=== PATIENT | female | born 1990 | race Two or more races ===

== ENCOUNTER 2021-02-22 09:32 | Inpatient (IN) | payer OTHER ==
[~2021-02-22] VITALS: Ht 157.5 cm; Wt 65.3 kg
[2021-02-22] MEDS ORDERED: PRENATAL TABLE1 EAC1 PO (09:51)
[2021-02-22] MEDS ORDERED: HEMATRON PO (09:52)
[2021-02-24] MEDS ORDERED: AMOX1TAB5 PO (08:11)
[2021-02-24] MEDS ORDERED: DOCUSATE SODIU100 MG PO (08:11)
[2021-02-24] MEDS ORDERED: PREPLUS CA-FE1 EACH PO (08:11)
[2021-02-24] MEDS ORDERED: IBUPROFEN400 MG PO (08:11)
== END 2021-02-24 11:32 | disposition home or self-care (01) | DRG 768 ==
LOC: SURG-SUITE 09:32 → LDR 09:32 → SURG-SUITE 18:04
PROVIDERS: ADMIT Obstetrics & Gynecology; ATTEND Obstetrics & Gynecology
PROC: 10E0XZZ Delivery of Products of Conception, External Approach (ICD-10-PCS; principal; 2021-02-22)
PROC: 0DQP0ZZ Repair Rectum, Open Approach (ICD-10-PCS; 2021-02-22)
PROC: 0W8NXZZ Division of Female Perineum, External Approach (ICD-10-PCS; 2021-02-22)
PROC: 10907ZC Drainage of Amniotic Fluid, Therapeutic from Products of Conception, Via Natural or Artificial Opening (ICD-10-PCS; 2021-02-22)
PROC: 3E033VJ Introduction of Other Hormone into Peripheral Vein, Percutaneous Approach (ICD-10-PCS; 2021-02-22)
PROC: 4A1HXFZ Monitoring of Products of Conception, Cardiac Rhythm, External Approach (ICD-10-PCS; 2021-02-22)
DX: O48.0 Post-term pregnancy (principal); O70.3 Fourth degree perineal laceration during delivery; O26.893 Other specified pregnancy related conditions, third trimester; Z67.41 Type O blood, Rh negative; O99.824 Streptococcus B carrier state complicating childbirth; Z37.0 Single live birth; Z3A.40 40 weeks gestation of pregnancy